=== PATIENT | male | born 1985 | race Caucasian/White ===

== ENCOUNTER 2018-01-05 19:12 | Emergency (ER) | payer SELFPAY ==
[~2018-01-05] VITALS: Ht 177.8 cm; Wt 72.8 kg
[2018-01-05] MEDS ORDERED: NAPROSYN500 MG PO (20:45)
[2018-01-05] MEDS ORDERED: CLEOCIN300 MG PO (20:45)
[2018-01-05 21:17] VITALS: BP 149/96
== END 2018-01-05 21:17 | disposition home or self-care (01) ==
LOC: EME 19:12
DX: L03.211 Cellulitis of face (principal); K08.89 Other specified disorders of teeth and supporting structures; F17.200 Nicotine dependence, unspecified, uncomplicated; Z88.0 Allergy status to penicillin
CPT/HCPCS: 99281; 99283